=== PATIENT | male | born 1990 | race African-American/Black ===

== ENCOUNTER 2017-01-28 21:22 | Emergency (ER) | payer BC, SELFPAY ==
[~2017-01-28] VITALS: Ht 162.6 cm; Wt 61.2 kg
[2017-01-28 21:23] VITALS: BP 131/79
== END 2017-01-29 00:53 | disposition left against medical advice (07) ==
LOC: M ED 01-29 00:14
DX: S09.90XA Unspecified injury of head, initial encounter (principal); Z53.29 Procedure and treatment not carried out because of patient's decision for other reasons

== ENCOUNTER 2020-06-24 10:50 | Emergency (ER) | payer OTHER, SELFPAY | END 2020-06-24 11:50 | disposition left against medical advice (07) | LOC: M ED 10:50 | DX: S09.90XA Unspecified injury of head, initial encounter (principal); M25.512 Pain in left shoulder; M79.652 Pain in left thigh; V43.52XA Car driver injured in collision with other type car in traffic accident, initial encounter; Y92.410 Unspecified street and highway as the place of occurrence of the external cause ==

== ENCOUNTER 2023-12-23 10:07 | Emergency (ER) | payer OTHER ==
[~2023-12-23] VITALS: Ht 162.6 cm; Wt 64.2 kg
[2023-12-23] MEDS ORDERED: CLEO150C PO (12:27)
[2023-12-23] MEDS ORDERED: HYDR-3713 PO (12:27)
[2023-12-23] MEDS ORDERED: CLEO300C2 PO (12:27)
[2023-12-23] MEDS: CLINDAMYCIN 150MG CAPSULE PO ONE (12:28)
[2023-12-23] MEDS: NORCO, ANEXSIA 5/325MG TABLET (HYDROcodone/ACETAMINOPHEN) PO ONE (12:28)
[2023-12-23 12:40] VITALS: BP 138/65; TEMP 97.6; O2SAT 100
== END 2023-12-23 12:42 | disposition home or self-care (01) ==
LOC: M ED 10:07
DX: S02.652A Fracture of angle of left mandible, initial encounter for closed fracture (principal); Y04.8XXA Assault by other bodily force, initial encounter; Y92.89 Other specified places as the place of occurrence of the external cause; Y93.84 Activity, sleeping; Y99.9 Unspecified external cause status; F17.200 Nicotine dependence, unspecified, uncomplicated

== ENCOUNTER → 2024-01-14 | Outpatient (REF) | payer OTHER, MEDICAID ==
[~2024-01-14] MED LIST: CLEO150C PO; CLEO300C2 PO; HYDR-3713 PO
[2024-01-14 12:36] LABS: BASO % 0.4 % (0.0-1.0); EOS # 0.1 10^3/uL (0.0-0.5); EOS % 2.3 % (0.0-3.0); HEMATOCRIT 47.4 % (42.0-52.0); HEMOGLOBIN 15.4 g/dl (13.5-17.5); LYMPH # 1.8 10^3/uL (1.5-5.0); LYMPH % 34.6 % (24.0-44.0); MEAN CORPUSCULAR HEMOGLOBIN 28.4 pg (27.0-33.0); MEAN CORPUSCULAR HGB CONC 32.5 g/dl (32.0-36.5); MEAN CORPUSCULAR VOLUME 87.3 fl (80.0-96.0); MONO # 0.7 10^3/uL (0.0-0.8); MONO % 12.7 % (2.0-8.0); NEUTROPHILS # 2.6 10^3/uL (1.5-8.5); NEUTROPHILS % 49.8 % (36.0-66.0); PLATELET COUNT, AUTOMATED 306 10^3/uL (150-450); RED BLOOD COUNT 5.43 10^6/uL (4.30-6.10); WHITE BLOOD COUNT 5.2 10^3/uL (4.0-10.0)
[2024-01-14 12:42] LABS: BLOOD UREA NITROGEN 9 MG/DL (9-23); CALCIUM LEVEL 9.4 MG/DL (8.5-10.1); CARBON DIOXIDE LEVEL 32 MMOL/L (20-31); CHLORIDE LEVEL 107 MMOL/L (98-107); CHOLESTEROL LEVEL 194 MG/DL (<200); CHOLESTEROL RISK RATIO 2.78 (<5); CREATININE FOR GFR 1.03 MG/DL (0.70-1.30); GLOMERULAR FILTRATION RATE > 60.0 (>60); GLUCOSE, FASTING 94 MG/DL (60-100); HDL CHOLESTEROL 69.7 MG/DL (>40); LDL CHOLESTEROL 100.5 MG/DL (<100); NON-HDL-C 124.3 MG/DL; POTASSIUM SERUM 4.4 MMOL/L (3.5-5.1); SODIUM LEVEL 139 MMOL/L (136-145); TRIGLYCERIDES LEVEL 119 MG/DL (<150)
[2024-01-14 12:46] LABS: THYROID STIMULATING HORMONE 0.295 uIU/ML (0.55-4.78); TOTAL 25(OH) VITAMIN D 17.8 NG/ML (20.0-100.0)
== END ==
LOC: M LAB REF 11:34
PROVIDERS: ATTEND Nurse Practitioner Family
DX: E55.9 Vitamin D deficiency, unspecified (principal); R53.83 Other fatigue; S02.609D Fracture of mandible, unspecified, subsequent encounter for fracture with routine healing; Z11.9 Encounter for screening for infectious and parasitic diseases, unspecified; Z13.220 Encounter for screening for lipoid disorders